=== PATIENT | female | born 1975 | race Caucasian/White ===

== ENCOUNTER → 2018-05-18 | Outpatient (CLI) | payer BC, OTHER ==
[~2018-05-18] MED LIST: IBUP200C8 PO; NONE PER PT
[2018-05-18 14:33] LABS: ALANINE AMINOTRANSFERASE 21 U/L (12-78); ALBUMIN 3.7 g/dL (3.4-5.0); ANION GAP 5 mmol/L (5-15); CALCIUM 8.6 mg/dL (8.5-10.1); CHLORIDE 109 mmol/L (98-107)
[2018-05-18 14:38] LABS: ALKALINE PHOSPHATASE 63 U/L (45-117); BASOPHILS # (AUTO) 0.03 x10^3/uL (0-0.1); BASOPHILS % (AUTO) 0 % (0-1); BILIRUBIN,TOTAL 0.3 mg/dL (0.2-1.0); CREATININE 0.89 mg/dL (0.55-1.02); EOSINOPHILS # (AUTO) 0.12 x10^3/uL (0-0.4); EOSINOPHILS % (AUTO) 1 % (1-7); LYMPHOCYTES # (AUTO) 1.64 x10^3/uL (1-3.4); LYMPHOCYTES % (AUTO) 20 % (22-44); MD NO; MEAN CORPUSCULAR HEMOGLOBIN 31.3 pg (27.0-34.8); MEAN CORPUSCULAR HGB CONC 33.7 g/dL (32.4-35.8); MEAN CORPUSCULAR VOLUME 92.8 fL (80-100); MEAN PLATELET VOLUME 9.2 fL (7.4-10.4); MONOCYTES # (AUTO) 0.51 x10^3/uL (0.2-0.8); MONOCYTES % (AUTO) 6 % (2-9); NEUTROPHILS # (AUTO) 6.09 x10^3/uL (1.8-6.8); NEUTROPHILS % (AUTO) 73 % (42-75); PLATELET COUNT 242 x10^3/uL (130-400); RED BLOOD COUNT 4.49 x10^6/uL (3.82-5.3); RED CELL DISTRIBUTION WIDTH 13.2 % (9.6-15.2); TOTAL PROTEIN 6.9 g/dL (6.4-8.2)
== END | disposition home or self-care (01) ==
LOC: STAR 13:39
PROVIDERS: ATTEND Obstetrics & Gynecology Gynecology
DX: Z01.818 Encounter for other preprocedural examination (principal); N92.0 Excessive and frequent menstruation with regular cycle; N85.2 Hypertrophy of uterus; N94.12 Deep dyspareunia
CPT/HCPCS: 36415; 80053; 84703; 85025

== ENCOUNTER 2018-05-28 05:37 | Day surgery (SDC) | payer BC, OTHER ==
[~2018-05-28] VITALS: Ht 170.2 cm; Wt 82.3 kg
[2018-05-28] MEDS ORDERED: LACTATED RINGERS 1,000 ML IV SCH ×2 (05:54→06:12)
[2018-05-28] MEDS ORDERED: INDIGO CARMINE 0.8%, 5ML ONE (07:03)
[2018-05-28] MEDS ORDERED: LIDOCAINE-MPF 1%, 5ML ONE (07:03)
[2018-05-28] MEDS ORDERED: EPINEPHRINE 1 MG/ML, 1ML ONE (07:05)
[2018-05-28 07:12] LABS: HCG UR SG 1.022 (1.003-1.030)
[2018-05-28] MEDS ORDERED: GABAPENTIN 300 MG CAPSULE ONE (07:12)
[2018-05-28] MEDS ORDERED: ACETAMINOPHEN 500 MG TABLET ONE (07:12)
[2018-05-28] MEDS ORDERED: FENTANYL PF 250 MCG/5ML ONE (07:18)
[2018-05-28] MEDS ORDERED: MIDAZOLAM 1 MG/ML, 2ML ONE (07:18)
[2018-05-28] MEDS ORDERED: GLYCOPYRROLATE 0.2MG/1ML, 5ML ONE (07:22)
[2018-05-28] MEDS ORDERED: KETOROLAC 30 MG/1 ML ONE (07:22)
[2018-05-28] MEDS ORDERED: SUCCINYLCHOLINE 20 MG/ML, 10ML ONE (07:22)
[2018-05-28] MEDS ORDERED: ROCURONIUM 10 MG/ML,10ML ONE (07:22)
[2018-05-28] MEDS ORDERED: ACETAMINOPHEN 500 MG TABLET PO ONE (07:30)
[2018-05-28] MEDS ORDERED: GABAPENTIN 300 MG CAPSULE PO ONE (07:30)
[2018-05-28] MEDS ORDERED: HYDROmorphone 1 MG/ML, 1ML IV PRN (08:00)
[2018-05-28] MEDS ORDERED: METOCLOPRAMIDE 5 MG/ML, 2ML IV PRN (08:00)
[2018-05-28] MEDS ORDERED: ONDANSETRON 2MG/ML, 2ML IV PRN (08:00)
[2018-05-28] MEDS ORDERED: LABETALOL 5MG/ML, 20ML IV PRN (08:00)
[2018-05-28] MEDS ORDERED: MEPERIDINE/PF 25MG/0.5ML IVPush PRN (08:00)
[2018-05-28] MEDS ORDERED: ALBUTEROL/IPRATROPIUM 2.5MG/0.5MG, 3 ML NPPB PRN (08:00)
[2018-05-28] MEDS ORDERED: FENTANYL PF 100 MCG/2ML IV PRN (08:00)
[2018-05-28] MEDS ORDERED: OXYcodone 5 MG/5 ML ORAL.SOL UDC PO PRN (08:00)
[2018-05-28] MEDS ORDERED: PROMETHAZINE 25 MG/ML, 1ML IV PRN (08:00)
[2018-05-28] MEDS ORDERED: EPHEDRINE 50 MG/ML, 1ML IM PRN (08:00)
[2018-05-28] MEDS ORDERED: MIDAZOLAM 1 MG/ML, 2ML IV PRN (08:00)
[2018-05-28] MEDS ORDERED: DEXAMETHASONE 4 MG/ML, 1ML ONE (08:38)
[2018-05-28] MEDS ORDERED: PROPOFOL 10 MG/ML, 20ML ONE (08:38)
[2018-05-28] MEDS ORDERED: ONDANSETRON 2MG/ML, 2ML ONE (08:38)
[2018-05-28] MEDS ORDERED: CEFAZOLIN 1,000 MG ONE (08:38)
[2018-05-28] MEDS ORDERED: OXYcodone 5 MG/5 ML ORAL.SOL UDC ONE (09:17)
[2018-05-28] MEDS ORDERED: FENTANYL PF 100 MCG/2ML ONE (09:17)
== END 2018-05-28 15:30 | disposition home or self-care (01) ==
LOC: OUT 05:37
PROVIDERS: ATTEND Obstetrics & Gynecology Gynecology
DX: N92.0 Excessive and frequent menstruation with regular cycle (principal); N94.6 Dysmenorrhea, unspecified; N94.10 Unspecified dyspareunia; D25.9 Leiomyoma of uterus, unspecified; N72 Inflammatory disease of cervix uteri; K21.9 Gastro-esophageal reflux disease without esophagitis; F17.210 Nicotine dependence, cigarettes, uncomplicated; Z98.890 Other specified postprocedural states
CPT/HCPCS: 36415; 58270; 81025; 85014; 88307; J0171; J0330; J0690; J1100; J1885; J2250; J2405; J2704; J3010; J3490; J7120; C1781